=== PATIENT | male | born 1970 | race Caucasian/White ===

== ENCOUNTER → 2022-07-24 | Outpatient (REF) | payer BC ==
[~2022-07-24] MED LIST: GLUCOPHAGE XR750 MG PO; NO HOME MEDICATIONS; PERCOCET 325 MG1 TA2 PO
[2022-07-24 20:53] LABS: BAND 3 % (0-10); EOSINOPHIL 5 % (0-4); LYMPHOCYTE 30 % (20.0-51.0); NEUTROPHILS 57 % (42.0-75.2); PLATELET ESTIMATE NORMAL (NORMAL)
== END ==
LOC: ZCOL.LAB 17:10
PROVIDERS: Family Medicine
DX: D72.829 Elevated white blood cell count, unspecified (principal)

== ENCOUNTER → 2023-01-01 | Outpatient (CLI) | payer SELFPAY ==
[2023-01-01 15:27] LABS: BAND 3 % (0-10); EOSINOPHIL 3 % (0-4); LYMPHOCYTE 16 % (20.0-51.0); NEUTROPHILS 71 % (42.0-75.2)
== END ==
LOC: ZCOL.LAB 15:01
PROVIDERS: Family Medicine
DX: D72.829 Elevated white blood cell count, unspecified (principal)

== ENCOUNTER → 2024-01-08 | Outpatient (CLI) | payer BC ==
[2024-01-08 19:47] LABS: BAND 1 % (0-10); BASOPHIL 1 % (0-2); EOSINOPHIL 2 % (0-4); LYMPHOCYTE 30 % (20.0-51.0); NEUTROPHILS 61 % (42.0-75.2); PLATELET ESTIMATE NORMAL (NORMAL)
== END ==
LOC: COL.LAB 17:46
PROVIDERS: Family Medicine
DX: D72.829 Elevated white blood cell count, unspecified (principal)